=== PATIENT | female | born 1990 | race Caucasian/White ===

== ENCOUNTER 2019-05-14 13:21 | Emergency (ER) | payer SELFPAY ==
[2019-05-14 13:33] VITALS: BP 120/81; PULSE 88; RESP 16; TEMP 36.6; O2SAT 97; BMI 25.1
[2019-05-14 14:17] LABS: HCG Qualitative Urine. Negative (Negative)
[2019-05-14 14:32] LABS: Basophils # 0.1 10^3/uL (0.0-0.1); Basophils % 0.9 %; Eosinophils # 0.1 10^3/uL (0.0-0.8); Hematocrit 43.8 % (37.0-47.0); Hemoglobin 14.5 g/dL (11.5-15.3); Lymphocytes # 3.2 10^3/uL (0.8-4.8); Lymphocytes % 35.1 %; Mean Corpuscular HGB Conc 33.1 g/dL (30.0-36.0); Mean Corpuscular Hemoglobin 28.8 pg (28.0-34.0); Mean Corpuscular Volume 86.9 fL (81-99); Mean Platelet Volume 9.2 fL (7.4-10.4); Monocytes # 0.5 10^3/uL (0.2-0.9); Monocytes % 5.5 %; Neutrophils # 5.2 10^3/uL (1.8-7.7); Neutrophils % 57.3 %; Nucleated Red Blood Cells % 0 %; Platelet Count 381 10^3/cmm (130-400); Red Blood Count 5.04 10^6/uL (4.1-5.3); Red Cell Distribution Width 12.7 % (12.1-15.1); White Blood Count 9.1 10^3/uL (4.0-10.0)
[2019-05-14 14:32] LABS: Add Urine Microscopic? YES; Bilirubin Urine Neg (NEGATIVE); Blood Urine Neg (Negative); Glucose Urine UA Norm (Normal); Ketones Urine Negative (Negative); Leukocyte Esterase Urine Negative (Negative); Nitrate Urine Negative (Negative); Protein Urine Neg (Negative); Urine Appearance SL Hazy (CLEAR); Urine Color Yellow (Yellow); Urobilinogen Urine Norm (Negative); pH Urine 6.5 (5-7)
[2019-05-14 14:37] LABS: Bacteria Urine 1+; Squamous Epithelial Cell Urine 0-4 (0-5); WBC Urine 0-4 /hpf (0-5)
[2019-05-14 14:43] LABS: Alanine Aminotransferase 50 U/L (0-33); Alkaline Phosphatase 95 IU/L (35-105); Anion Gap 17.2 (5-19); Aspartate Amino Transferase 30 U/L (0-32); Blood Urea Nitrogen 9 mg/dL (6-20); Calcium 10.1 mg/dL (8.5-10.5); Carbon Dioxide 23 mmol/L (22-29); Chloride 102 mmol/L (98-107); Globulin 2.7 g/dL (1.3-4.6); Glomerular Filtration Rate 99.6 mL/min (90-130); Glucose 91 mg/dL (65-115); Lipase 20 U/L (13-60); Potassium 4.2 mmol/L (3.5-5.1); Sodium 138 mmol/L (136-145); Total Bilirubin 0.3 mg/dL (0.15-1.2); Total Protein 7.7 g/dL (6.6-8.7)
--- NOTE | 2019-05-14 15:44 | W.ED.ABDPA2 ---
HPI - Abdominal Pain General: Chief Complaint: Abdominal Pain Stated Complaint: abd pain Time Seen by Provider: 05/14/19 15:43 Source: patient Mode of arrival: ambulatory Limitations: no limitations History of Present Illness: HPI narrative: 28-year-old female comes in today with complaints of midepigastric pain. Patient reports history of esophageal reflux disorder. Patient also reports that last year she had a bout of hepatitis A. Patient does also have a history of gallstones. Patient appears mildly unwell. Patient appears in no acute distress. Associated Symptoms: Reports nausea Review of Systems General: Reports: 10 or more systems reviewed and unremarkable except in HPI and below GI: Reports: abdominal pain and nausea PFSH ED PFSH: Social History Smoking and tobacco status: current every day smoker Physical Exam Const: COMMON NORMALS: no apparent distress and oriented x3 GENERAL APPEARANCE: cooperative HENMT: COMMON NORMALS: normocephalic, external ears normal, EAC's normal, TM's normal bilaterally and external nose normal HEAD & SCALP: normal to inspection and normocephalic FACE & SINUS: normal facial exam NOSE: external nose normal GENERAL EAR: hearing not grossly impaired EXTERNAL EAR: Yes external ears normal EXTERNAL AUDITORY CANAL: EAC's normal TYMPANIC MEMBRANE: TM's normal bilaterally MOUTH: oral and palatal mucosa normal THROAT: posterior oropharynx normal Eye: COMMON NORMALS: PERRL and EOMs intact bilaterally PUPIL: Yes PERRL Neck/C-Spine: COMMON NORMALS: full ROM and no lymphadenopathy Lymph: LYMPHATIC: no lymphedema noted Chest: COMMONS NORMALS: inspection of chest normal and palpation of chest normal Resp: COMMON NORMALS: normal respiratory effort and clear to auscultation bilaterally AUSCULTATION: clear to auscultation bilaterally Cardio: COMMON NORMALS: regular rate and regular rhythm RATE: regular rate RHYTHM: regular rhythm GI: COMMON NORMALS: normal to inspection, nondistended, normoactive bowel sounds PALPATION: Yes tender (mild mid epigastric) : COMMON NORMALS: Yes no CVA tenderness BLADDER/KIDNEY EXAM: Yes no CVA tenderness Back/Pelvis: COMMON NORMALS: no CVA tenderness and thoracic and lumbar spine normal to inspection Extremity: COMMON NORMALS: normal to inspection GENERAL: No edema Neuro: COMMON NORMALS: oriented x3, moves all extremities and no focal motor deficits Psych: COMMON NORMALS: mental status grossly normal and cooperative Skin: COMMON NORMALS: no rashes or lesions noted GENERAL SKIN EXAM: no rashes or lesions noted Course Vital Signs: Vital signs: Vital Signs Temperature 97.8 F 05/14/19 13:33 Pulse Rate 88 05/14/19 13:33 Respiratory Rate 16 05/14/19 13:33 Blood Pressure 120/81 05/14/19 13:33 Pulse Oximetry 97 05/14/19 13:33 MDM - Abdominal Pain MDM Narrative: Medical decision making narrative: Patient comes in today with complaints of midepigastric pain. On exam patient appears well. Abdomen soft some mild tenderness is noted in the mid epigastric area. Bowel sounds are present throughout. No rebound tenderness is noted. No guarding is noted. Vital signs are normal. Differential diagnosis includes gastritis, esophageal reflux, peptic ulcer disease, cholecystitis, pancreatitis, cholelithiasis. Laboratory values noted no abnormalities. Urine was clear. Reviewed exam with patient with recommendations for treatment of gastritis with esophageal reflux. Patient reported understanding of care plan and need for follow-up for further evaluation. Patient also reports understanding for return to the ER as needed. Lab Data: Labs: Lab Results 05/14/19 05/14/19 05/14/19 Range/Units 13:30 13:30 14:16 WBC 9.1 (4.0-10.0) 10^3/ uL RBC 5.04 (4.1-5.3) 10^6/u L Hgb 14.5 (11.5-15.3) g/dL Hct 43.8 (37.0-47.0) % MCV 86.9 (81-99) fL MCH 28.8 (28.0-34.0) pg MCHC 33.1 (30.0-36.0) g/dL RDW 12.7 (12.1-15.1) % Plt Count 381 (130-400) 10^3/c mm MPV 9.2 (7.4-10.4) fL Neut % (Auto) 57.3 % Lymph % (Auto) 35.1 % [place] % (Auto) 5.5 % Eos % (Auto) 1.0 % Baso % (Auto) 0.9 % Neut # (Auto) 5.2 (1.8-7.7) 10^3/u L Lymph # (Auto) 3.2 (0.8-4.8) 10^3/u L [place] # (Auto) 0.5 (0.2-0.9) 10^3/u L Eos # (Auto) 0.1 (0.0-0.8) 10^3/u L Baso # (Auto) 0.1 (0.0-0.1) 10^3/u L Nucleated RBC % (a uto) 0 % Nucleated RBCs # 0.0 /100WBC Sodium (136-145) mmol/L Potassium (3.5-5.1) mmol/L Chloride (98-107) mmol/L Carbon Dioxide (22-29) mmol/L Anion Gap (5-19) BUN (6-20) mg/dL Creatinine (0.5-0.9) mg/dL GFR Calculation (90-130) mL/min Glucose (65-115) mg/dL Calcium (8.5-10.5) mg/dL Total Bilirubin (0.15-1.2) mg/dL AST (0-32) U/L ALT (0-33) U/L Alkaline Phosphata se (35-105) IU/L Total Protein (6.6-8.7) g/dL Albumin (3.5-5.2) g/dL Globulin (1.3-4.6) g/dL Lipase (13-60) U/L HCG, Qual Negative (Negative) Urine Color Yellow (Yellow) Urine Appearance Sl hazy (CLEAR) Urine pH 6.5 (5-7) Ur Specific Gravit y 1.010 (1.005-1.030) Urine Protein Neg (Negative) Urine Glucose (UA) Norm (Normal) Urine Ketones Negative (Negative) Urine Blood Neg (Negative) Urine Nitrate Negative (Negative) Urine Bilirubin Neg (NEGATIVE) Urine Urobilinogen Norm (Negative) mg/dL Ur Leukocyte Loyda ase Negative (Negative) Urine RBC None (0-2) /hpf Urine WBC 0-4 H (0-5) /hpf Ur Squamous Epith Cells 0-4 H (0-5) Urine Bacteria 1+ H (NONE) H. pylori IgG Anti body (Negative) 05/14/19 05/14/19 Range/Units 14:16 14:16 WBC (4.0-10.0) 10^3/ uL RBC (4.1-5.3) 10^6/u L Hgb (11.5-15.3) g/dL Hct (37.0-47.0) % MCV (81-99) fL MCH (28.0-34.0) pg MCHC (30.0-36.0) g/dL RDW (12.1-15.1) % Plt Count (130-400) 10^3/c mm MPV (7.4-10.4) fL Neut % (Auto) % Lymph % (Auto) % [place] % (Auto) % Eos % (Auto) % Baso % (Auto) % Neut # (Auto) (1.8-7.7) 10^3/u L Lymph # (Auto) (0.8-4.8) 10^3/u L [place] # (Auto) (0.2-0.9) 10^3/u L Eos # (Auto) (0.0-0.8) 10^3/u L Baso # (Auto) (0.0-0.1) 10^3/u L Nucleated RBC % (a uto) % Nucleated RBCs # /100WBC Sodium 138 (136-145) mmol/L Potassium 4.2 (3.5-5.1) mmol/L Chloride 102 (98-107) mmol/L Carbon Dioxide 23 (22-29) mmol/L Anion Gap 17.2 (5-19) BUN 9 (6-20) mg/dL Creatinine 0.7 (0.5-0.9) mg/dL GFR Calculation 99.6 (90-130) mL/min Glucose 91 (65-115) mg/dL Calcium 10.1 (8.5-10.5) mg/dL Total Bilirubin 0.3 (0.15-1.2) mg/dL AST 30 (0-32) U/L ALT 50 H (0-33) U/L Alkaline Phosphata se 95 (35-105) IU/L Total Protein 7.7 (6.6-8.7) g/dL Albumin 5.0 (3.5-5.2) g/dL Globulin 2.7 (1.3-4.6) g/dL Lipase 20 (13-60) U/L HCG, Qual (Negative) Urine Color (Yellow) Urine Appearance (CLEAR) Urine pH (5-7) Ur Specific Gravit y (1.005-1.030) Urine Protein (Negative) Urine Glucose (UA) (Normal) Urine Ketones (Negative) Urine Blood (Negative) Urine Nitrate (Negative) Urine Bilirubin (NEGATIVE) Urine Urobilinogen (Negative) mg/dL Ur Leukocyte Loyda ase (Negative) Urine RBC (0-2) /hpf Urine WBC (0-5) /hpf Ur Squamous Epith Cells (0-5) Urine Bacteria (NONE) H. pylori IgG Anti body Negative (Negative) Discharge Plan Discharge Clinical Impression: Gastritis Qualifiers: Gastritis type: unspecified gastritis Chronicity: chronic Gastritis bleeding: without bleeding Qualified Code(s): K29.50 - Unspecified chronic gastritis without bleeding Cholelithiases Qualifiers: Cholelithiasis location: gallbladder Cholecystitis presence: without cholecystitis Biliary obstruction: without biliary obstruction Qualified Code(s): K80.20 - Calculus of gallbladder without cholecystitis without obstruction Condition: Stable Prescriptions: New dicyclomine 20 mg tablet 20 mg PO QID PRN (Reason: abdominal pain) Qty: 20 RF: 0 pantoprazole 40 mg tablet,delayed release (DR/EC) 40 mg PO DAILY Qty: 30 RF: 0 No Action No Known Home Medications RF: 0 Discharge Orders: Discharge Order (Routine); Ordered 05/14/19 Ordered By: Darian Hutson Referrals: Edmond Cardenas MD [Family Provider] - Valerie Tineo FNP [Primary Care Provider] - Discharge Diet: Usual diet Discharge Activity: Increase activity as tolerated Patient Instructions: Gastroesophageal Reflux Disease (ED) Activity Restrictions/Additional Instructions: drink plenty of fluids Avoid spicy, greasy, and acidic foods until pain is improved Healthy diet and exercise Stop smoking Follow-up with primary care in one week Return to ER for high fever, or new concerns Stand Alone Forms: Work/School Release Coding Level of Care Code ED 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
[2019-05-14 16:09] LABS: H. Pylori IgG Antibody Negative (Negative)
[2019-05-14] MEDS: lidocaine 2% viscous 15 ML, aluminum-mag hydrox-simethicon 30 ML, sucralfate oral liq 1 GM PO (16:18)
== END 2019-05-14 16:55 | disposition home or self-care (01) ==
PROVIDERS: Family Medicine; Emergency Provider Nurse Practitioner Family; Family Provider Internal Medicine; PCP Nurse Practitioner
DX: K29.50 Unspecified chronic gastritis without bleeding (principal); K80.20 Calculus of gallbladder without cholecystitis without obstruction; F17.200 Nicotine dependence, unspecified, uncomplicated
CPT/HCPCS: 36415; 80053; 81001; 81025; 83690; 85025; 86677; 99282; 99283

== ENCOUNTER 2020-01-02 05:14 | Emergency (ER) | payer SELFPAY ==
[2020-01-02 05:16] VITALS: BP 119/63; PULSE 85; RESP 14; TEMP 36.9; O2SAT 98; BMI 23.3
--- NOTE | 2020-01-02 05:19 | CTR_ITS ---
PROCEDURE INFORMATION: Exam: CT Head Without Contrast Exam date and time: 01/02/2020 5:51 AM Age: 29 years old Clinical indication: Altered mental status/memory loss; Confusion or disorientation TECHNIQUE: Imaging protocol: Computed tomography of the head without contrast. Radiation optimization: All CT scans at this facility use at least one of these dose optimization techniques: automated exposure control; mA and/or kV adjustment per patient size (includes targeted exams where dose is matched to clinical indication); or iterative reconstruction. COMPARISON: No relevant prior studies available. RADIATION DOSE METRICS: Total DLP (mGy-cm): 845.42 FINDINGS: Brain: No acute intracranial hemorrhage or mass effect. No definite acute infarct by CT. MRI could be more sensitive/specific for detection, as clinically directed. Cerebral ventricles: Ventricle size is normal for age. Bones/joints: No definite acute skull fracture. Paranasal sinuses: Included paranasal sinuses are essentially clear. Mastoid air cells: No significant acute finding. CT/CT head wo con* [id number] IMPRESSION: 1. No acute intracranial hemorrhage or mass effect. 2. No definite acute infarct by CT, see above. 3. Other findings discussed above. Radiation Dose CTDIVOL = (mGy): DLP = 845.42 (mGy-cm)
--- NOTE | 2020-01-02 05:19 | XRR_ITS ---
PROCEDURE INFORMATION: Exam: XR Chest, 1 View Exam date and time: 01/02/2020 5:43 AM Age: 29 years old Clinical indication: Altered mental status TECHNIQUE: Imaging protocol: XR of the chest Views: 1 view. COMPARISON: CR Chest 1 [place] [id number] 09/01/2018 7:38 AM FINDINGS: Lungs: No lung consolidation or pulmonary edema. Pleural space: No pleural effusion or pneumothorax. Heart/Mediastinum: The cardiac silhouette is not enlarged. The mediastinal contours are normal. Bones/joints: No acute osseous abnormality. XR/XR chest 1V portable [id number] IMPRESSION: No acute abnormality.
--- NOTE | 2020-01-02 05:20 | ECG_ITS ---
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 Measurements Intervals [place] Rate: 104 P: 56 KS: 137 QRS: 60 QRSD: 84 T: 29 QT: 341 QTc: 449 Interpretive Statements SINUS TACHYCARDIA SEPTAL MYOCARDIAL INFARCTION , OF INDETERMINATE AGE [40+ ms Q WAVE IN V1/V2] No previous ECG available for comparison Electronically Signed On 01-03-2020 20:28:28 CDT by Kee Garcia M.D. [id number]
--- NOTE | 2020-01-02 05:34 | ED_ITS ---
HPI - Alcohol General: Chief Complaint: Alcohol Stated Complaint: ETOH Time Seen by Provider: 01/02/20 05:18 Source: patient and EMS Mode of arrival: EMS Limitations: altered mental status History of Present Illness: HPI narrative: Óscar is a 29-year-old female who comes in by EMS with report of intoxication. Apparently the patient's roommate came home and found her asleep in her bed with 2 empty bottles of alcohol near the bed. Does not believe the patient may have overdosed. The patient was much more altered than what was to be expected and because of this her roommate called for the paramedics. EMS does not report any suspicion of overdose they did bring the patient's medications with her and there is still quite a bit of medication left in the bottles. These were prescriptions for naproxen, gabapentin and Flexeril. The patient opens her eyes spontaneously and will follow commands but her speech is unintelligible. EMS reports stable vital signs in route. Review of Systems General: Reports: ROS unobtainable due to mental status PFSH ED PFSH: Social History Smoking and tobacco status: current every day smoker Physical Exam Const: COMMON NORMALS: no acute distress and alert GENERAL APPEARANCE: cooperative HENMT: COMMON NORMALS: normocephalic, atraumatic, external ears normal, EAC's normal and Normal external nose present HEAD & SCALP: normal to inspection, normocephalic and atraumatic FACE & SINUS: normal facial exam and face symmetric NOSE: Normal external nose present and Normal nares present EXTERNAL EAR: Yes external ears normal EXTERNAL AUDITORY CANAL: EAC's normal MOUTH: Normal oral and palatal mucosa present, lip normal and tongue normal Eye: COMMON NORMALS: Equal, round and reactive pupils present and conjunctivae normal GENERAL EYE: appearance normal, both eyes and all related structures ALIGNMENT: Yes alignment normal PERIORBITAL: periorbital findings normal EYELID: eyelids normal CONJUNCTIVA: Yes conjunctivae normal SCLERA: sclerae normal PUPIL: Yes Equal, round and reactive pupils present Neck/C-Spine: COMMON NORMALS: full ROM, no lymphadenopathy, supple, no meningeal signs and no JVD GENERAL: Yes normal visual inspection and Yes trachea midline Chest: COMMONS NORMALS: normal inspection of the chest and normal palpation of entire chest wall Resp: COMMON NORMALS: normal respiratory effort, No retractions, No use of accessory muscles and clear to auscultation bilaterally EFFORT & INSPECTION: Yes able to speak in complete sentences and Yes symmetric chest movement AUSCULTATION: clear to auscultation bilaterally, no crackles, no rales, no rhonchi and no wheezes Cardio: COMMON NORMALS: no JVD, regular rate, regular rhythm, S1 normal heart sound present and S2 normal heart sound present RATE: regular rate RHYTHM: regular rhythm HEART SOUNDS: S1 normal heart sound present, S2 normal heart sound present, no click, no gallops, no murmurs and no rubs GI: COMMON NORMALS: Soft to palpation and No hepatosplenomegaly present PALPATION: Yes Soft to palpation, No Tenderness to palpation present (GI), No Guarding due to palpation present (GI), No Rigid due to palpation, Yes No hepatosplenomegaly present, No Hernia present, No Palpable mass present and No Pulsatile mass present : COMMON NORMALS: Yes no CVA tenderness BLADDER/KIDNEY EXAM: Yes no CVA tenderness EXTERNAL FEMALE EXAM: No Hernia present Back/Pelvis: COMMON NORMALS: no CVA tenderness, thoracic and lumbar spine normal to inspection, no thoracic nor lumbar tenderness and thoraco-lumbar ROM normal Extremity: COMMON NORMALS: normal to inspection, full ROM, capillary refill normal, no joint enlargement, no clubbing, cyanosis or edema and no calf tenderness Neuro: MILVIA COMA SCALE: document GCS findings Kopperl coma scale eye opening: Spontaneous Kopperl coma scale verbal response: Sounds Kopperl coma scale motor response: Obey commands Kopperl coma scale total score: 12 COMMON NORMALS: CN's II-XII intact bilaterally, moves all extremities, no focal motor deficits and no sensory deficits noted SENSORIUM/ORIENTATION: Yes alert MENINGEAL SIGNS: Yes no meningeal signs Skin: COMMON NORMALS: no rashes or lesions noted, turgor normal, no jaundice, no petechiae and no mottling GENERAL SKIN EXAM: no rashes or lesions noted and turgor normal Course Vital Signs: Vital signs: Vital Signs Temperature 98.5 F 01/02/20 05:16 Pulse Rate 85 01/02/20 05:16 Respiratory Rate 14 01/02/20 05:16 Blood Pressure 119/63 01/02/20 05:16 Pulse Oximetry 98 01/02/20 05:16 MDM - Alcohol MDM Narrative: Medical decision making narrative: 05Ulises Ferrell is a 29-year-old female who comes in with altered mental status. She was found in her bed and apparently intoxicated. Odor of alcohol is on her breath. Differential for altered mental status is extensive to include alcohol intoxication, overdose, meningitis, encephalitis sepsis, metabolic abnormality, cardiac abnormality, renal failure among many others. I will order a CT of the head and a complete laboratory work-up to evaluate for this. Currently the patient is hemodynamically stable with a GCS of 12. She is maintaining her own airway. Case is being turned over to Dr. Ballard at change of shift. Lab Data: Labs: Lab Results 01/02/20 01/02/20 01/02/20 Range/Units 05:29 05:29 05:40 WBC 13.4 H (4.0-10.0) 10^3/ uL RBC 5.28 (4.1-5.3) 10^6/u L Hgb 15.6 H (11.5-15.3) g/dL Hct 46.3 (37.0-47.0) % MCV 87.7 (81-99) fL MCH 29.5 (28.0-34.0) pg MCHC 33.7 (30.0-36.0) g/dL RDW 12.8 (12.1-15.1) % Plt Count 417 H (130-400) 10^3/c mm MPV 9.1 (7.4-10.4) fL Neut % (Auto) 69.1 % Lymph % (Auto) 24.3 % [place] % (Auto) 4.5 % Eos % (Auto) 0.6 % Baso % (Auto) 1.0 % Neut # (Auto) 9.24 H (1.8-7.7) 10^3/u L Lymph # (Auto) 3.2 (0.8-4.8) 10^3/u L [place] # (Auto) 0.6 (0.2-0.9) 10^3/u L Eos # (Auto) 0.1 (0.0-0.8) 10^3/u L Baso # (Auto) 0.1 (0.0-0.1) 10^3/u L Nucleated RBC % (a uto) 0 % Nucleated RBCs # 0.0 /100WBC PT 12.60 (12.1-14.9) SECO NDS INR 0.91 (0.8-1.2) Specimen Type Arterial Sample Site Radial, right ABG pH 7.41 (7.35-7.45) ABG pCO2 34.7 L (35-45) mmHg ABG pO2 92.9 (80.0-100.0) mmH g ABG HCO3 22.2 (22-26) mmol/L ABG Base Excess -1.7 (-2.0-2.0) mmol/ L Vladislav Test Pos Hematocrit 46.6 (37-47) % Mortgage Processing Clerk ID [email or web address] EKG Data^: EKG 1: Attestation: I personally reviewed and interpreted this EKG as follows: EKG interpretation date: 01/02/20 EKG interpretation time: 05:28 Interpretation: Normal sinus rhythm at 104 beats a minute, normal axis, no blocks, normal intervals. No acute ST-T wave changes. Discharge Plan Discharge Prescriptions: No Action gabapentin 300 mg capsule 300 mg PO DAILY 30 Days Qty: 30 RF: 0 cyclobenzaprine 5 mg tablet 5 mg PO TID PRN (Reason: muscle spasm) 30 Days Qty: 30 RF: 0 naproxen 500 mg tablet 500 mg PO BID PRN (Reason: pain) 30 Days Qty: 30 RF: 0 Coding Level of Care Code ED Mild Disabilities Teacher for Chg Fwd Exam Comprehensive
[2020-01-02 05:38] LABS: Basophils # 0.1 10^3/uL (0.0-0.1); Eosinophils # 0.1 10^3/uL (0.0-0.8); Eosinophils % 0.6 %; Hematocrit 46.3 % (37.0-47.0); Hemoglobin 15.6 g/dL (11.5-15.3); Lymphocytes # 3.2 10^3/uL (0.8-4.8); Lymphocytes % 24.3 %; Mean Corpuscular HGB Conc 33.7 g/dL (30.0-36.0); Mean Corpuscular Hemoglobin 29.5 pg (28.0-34.0); Mean Corpuscular Volume 87.7 fL (81-99); Mean Platelet Volume 9.1 fL (7.4-10.4); Monocytes # 0.6 10^3/uL (0.2-0.9); Monocytes % 4.5 %; Neutrophils # 9.24 10^3/uL (1.8-7.7); Neutrophils % 69.1 %; Nucleated Red Blood Cells % 0 %; Platelet Count 417 10^3/cmm (130-400); Red Blood Count 5.28 10^6/uL (4.1-5.3); Red Cell Distribution Width 12.8 % (12.1-15.1); White Blood Count 13.4 10^3/uL (4.0-10.0)
[2020-01-02 05:45] LABS: ABG PCO2 34.7 mmHg (35-45); ABG PH Result 7.41 (7.35-7.45); Arterial Blood Gas Hematocrit 46.6 % (37-47); Base Excess ABG -1.7 mmol/L (-2.0-2.0); Blood Gas Allen Test Pos; Blood Gas Sample Site Radial, right; Blood Gas Sample Type Arterial; HCO3 ABG 22.2 mmol/L (22-26); PO2 ABG 92.9 mmHg (80.0-100.0)
[2020-01-02] MEDS: ondansetron 2 mg/ML SDV 2 mL 4 MG IVP (05:49)
[2020-01-02 05:50] LABS: INR 0.91 (0.8-1.2)
[2020-01-02] MEDS: lactated ringers 1,000 ML 999 ML IV ×2 (05:55→06:54)
[2020-01-02 05:57] LABS: HCG, Serum Qual Negative (Negative)
[2020-01-02 06:05] LABS: Troponin(5th) Baseline 6 ng/L (0-10)
[2020-01-02 06:15] LABS: Alanine Aminotransferase 32 U/L (0-33); Albumin Level 5.7 g/dL (3.5-5.2); Alcohol Level 137 mg/dL (0-10); Alkaline Phosphatase 90 IU/L (35-105); Anion Gap 19.3 (5-19); Aspartate Amino Transferase 22 U/L (0-32); Blood Urea Nitrogen 10 mg/dL (6-20); Carbon Dioxide 24 mmol/L (22-29); Chloride 104 mmol/L (98-107); Creatine Phosphokinase 176 U/L (26-192); Creatinine Clr Calc Pharmacy 130.1707; Globulin 2.4 g/dL (1.3-4.6); Glomerular Filtration Rate 118.2 mL/min (90-130); Glucose 102 mg/dL (65-115); Magnesium 2.4 mg/dL (1.7-2.3); Osmolality Calculated 295 mOsm/kg (285-295); Potassium 4.3 mmol/L (3.5-5.1); Sodium 143 mmol/L (136-145); Total Bilirubin 0.2 mg/dL (0.15-1.2); Total Protein 8.1 g/dL (6.6-8.7)
[2020-01-02 06:32] LABS: Acetaminophen < 5.0 ug/mL (10-30); Salicylate < 0.3 mg/dL (3-10)
[2020-01-02 06:39] VITALS: BP 100/63; PULSE 73; RESP 16; O2SAT 98
--- NOTE | 2020-01-02 06:47 | PC.NURSE ---
Patient wakes ups intermitently and says I don't feel good. Unable to get answers to questions.
[2020-01-02 06:58] VITALS: BP 124/77; PULSE 67; RESP 18; O2SAT 99
[2020-01-02 07:01] LABS: Bilirubin Urine Neg (Negative); Blood Urine Neg (Negative); Glucose Urine UA Norm (Normal); Ketones Urine Negative (Negative); Leukocyte Esterase Urine Negative (Negative); Nitrate Urine Negative (Negative); Protein Urine Neg (Negative); Specific Gravity, Urine 1.005 (1.005-1.030); Urine Appearance Clear (CLEAR); Urine Color Yellow (Yellow); Urobilinogen Urine Norm (Negative); pH Urine 7 (5-7)
[2020-01-02 07:02] LABS: Add Urine Culture? No; Bacteria Urine TRACE /hpf; RBC Urine RARE /hpf (0-2); Squamous Epithelial Cell Urine 0-4 /hpf (0-5); WBC Urine 0-4 /hpf (0-5)
[2020-01-02 07:06] LABS: Amphetamines Screen Urine Negative (Negative); Barbiturates Screen Urine Negative (Negative); Benzodiazepines Screen Urine Negative (Negative); Cocaine Screen Urine Negative (Negative); Opiate Screen Urine Negative (Negative); PCP Screen Urine Negative (Negative); THC Screen Urine Negative (Negative)
--- NOTE | 2020-01-02 07:20 | ECG_ITS ---
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 Measurements Intervals [place] Rate: 73 P: 49 [place]: 155 QRS: 51 QRSD: 92 T: 16 QT: 408 QTc: 451 Interpretive Statements SINUS RHYTHM WITH SINUS ARRHYTHMIA SEPTAL MYOCARDIAL INFARCTION , OF INDETERMINATE AGE [40+ ms Q WAVE IN V1/V2] Compared to ECG 01/02/2020 05:28:41 Sinus tachycardia no longer present Myocardial infarct finding still present Electronically Signed On 01-03-2020 20:52:42 CDT by Kee Garcia M.D. [id number]
[2020-01-02] MEDS: ketorolac 30 mg/mL INJ IVP (07:33)
[2020-01-02 08:05] LABS: Troponin 5 2HR 6.76 ng/L (0-10); Troponin 5 2HR Delta 0.76 ABS# (0-10)
[2020-01-02 09:27] VITALS: BP 118/72; PULSE 85; RESP 18; O2SAT 97
--- NOTE | 2020-01-02 09:41 | PC.NURSE ---
Nose began bleeding after nasal swab for the COVID
[2020-01-02 10:06] VITALS: BP 121/68; PULSE 74; RESP 18; TEMP 36.6; O2SAT 96
== END 2020-01-02 10:07 | disposition home or self-care (01) ==
PROVIDERS: Emergency Medicine; Emergency Provider Family Medicine; Family Provider Internal Medicine; PCP Nurse Practitioner
DX: F10.129 Alcohol abuse with intoxication, unspecified (principal); F43.10 Post-traumatic stress disorder, unspecified; F17.210 Nicotine dependence, cigarettes, uncomplicated
CPT/HCPCS: 12345; 36600; 70450; 71045; 80053; 80306; 80307; 81001; 82550; 82803; 83735; 84484; 84703; 85025; 85610; 93005; 96365; 96366; 96375; 99283; 99284; J1885; J2405

== ENCOUNTER 2020-01-24 10:27 | Outpatient (CLI) | payer SELFPAY ==
--- NOTE | 2020-01-24 10:36 | XR_ITS ---
WS: [id number] XR lumbar spine 2-3V* [id number] REASON FOR EXAM: BACK PAIN FINDINGS: 5 lumbar vertebral bodies with no significant compression deformity. Normal lumbar spine alignment. Intervertebral disc spaces are well preserved. No significant facet joint changes. XR/XR lumbar spine 2-3V* [id number] IMPRESSION: No significant abnormality identified.
== END 2020-01-24 10:28 | disposition home or self-care (01) ==
PROVIDERS: PCP Family Medicine Adult Medicine; Visit Provider Dermatology
DX: M54.9 Dorsalgia, unspecified (principal)
CPT/HCPCS: 72100

== ENCOUNTER → 2020-05-13 15:30 | Outpatient (BNVA) | payer OTHER, SELFPAY | PROVIDERS: PCP Family Medicine Adult Medicine; Visit Provider Nurse Practitioner Family | DX: Z11.52 Encounter for screening for COVID-19 (principal) | CPT/HCPCS: 87635 ==

== ENCOUNTER 2020-08-26 14:23 | Emergency (ER) | payer SELFPAY ==
[2020-08-26 14:33] VITALS: PULSE 88; RESP 16; TEMP 36.4; O2SAT 97; BMI 23.8
--- NOTE | 2020-08-26 14:57 | XRR_ITS ---
PROCEDURE INFORMATION: Exam: XR Left Knee Exam date and time: 08/26/2020 3:12 PM Age: 30 years old Clinical indication: Pain and injury or trauma; Other: Caught knee in intake valve of pool; Swelling (edema); Left; Injury date: 08/21/20; Additional info: Injury/pain TECHNIQUE: Imaging protocol: XR Left knee. Views: 3 views. COMPARISON: No relevant prior studies available. FINDINGS: Bones/joints: Normal. Soft tissues: Normal. XR/XR knee LT 3V* [id number] IMPRESSION: No acute findings.
--- NOTE | 2020-08-26 15:51 | W.ED.LOWEXIN ---
HPI - Extremity Injury (Lower) General: Chief Complaint: Extremity Injury, Lower Stated Complaint: LLE Injury Time Seen by Provider: 08/26/20 15:29 Source: patient Mode of arrival: ambulatory Limitations: no limitations History of Present Illness: HPI Narrative: Patient is a 30-year-old female who presents to ED today for evaluation of left knee pain. Patient tells me she initially injured the knee approximately 5 days ago after catching the left knee and an intake valve while at the pool. She was seen in urgent care 3 days ago and was told she could have a meniscal tear. They recommended compression, weight bearing as tolerated with crutches, ice and elevation. Patient has been doing these but is concerned because she continues to have pain. XRs not obtained at . Pain is localized to her medial joint line. No other complaints at this time. MD complaint: knee injury Onset (ago): day(s) Place: other ([place]) Severity: moderate Relieving factors: immobilization Exacerbating factors: weight bearing, movement and palpation Associated symptoms: Reports no associated symptoms Other symptoms: none Review of Systems Const: Denies: fever(s) Card: Denies: chest pain Resp: Denies: dyspnea Musc: Reports: joint pain (L knee); Denies: neck pain, back pain, extremity pain, extremity swelling, joint redness, joint warmth or limited range of motion Neuro: Denies: numbness in extremities, weakness in extremities or sensory changes PFSH ED PFSH: Medical History Anxiety and depression Borderline personality disorder Gallbladder disease Gallstones IBS (irritable bowel syndrome) Migraine PTSD (post-traumatic stress disorder) Scoliosis Smoker Surgical History History of back surgery History of oral surgery Social History Smoking and tobacco status: current every day smoker cigarettes Packs smoked per day: 1 Second hand smoke exposure: Yes Alcohol intake: current Alcohol intake frequency: holidays/special occasions only Current occupational status: unemployed Current gender identity: Female Female Reproductive History: Date of last menstrual period: 08/24/20 Physical Exam Const: COMMON NORMALS: no acute distress, average body habitus, patient oriented x3, no limitations, healthy appearing, alert and well nourished Extremity: COMMON NORMALS: full ROM, capillary refill normal, no joint enlargement, no clubbing, cyanosis or edema, no calf tenderness and no pedal edema GENERAL: Yes normal exam except as noted LEFT LOWER EXTREMITY: Yes knee joint (TTP lateral joint line; tenderness with valgus stress) Left knee: Yes ROM (normal) and Yes neurovascular exam (normal) Neuro: COMMON NORMALS: patient oriented x3, moves all extremities, no focal motor deficits and no sensory deficits noted SENSORIUM/ORIENTATION: Yes alert Skin: COMMON NORMALS: no rashes or lesions noted GENERAL SKIN EXAM: no rashes or lesions noted TRAUMA: no lacerations or abrasions Course Vital Signs: Vital signs: Vital Signs Temperature 97.6 F 08/26/20 14:33 Pulse Rate 76 08/26/20 15:54 Respiratory Rate 16 08/26/20 15:54 Blood Pressure 107/71 08/26/20 15:54 Pulse Oximetry 97 08/26/20 15:54 MDM - Extremity Injury (Lower) MDM Narrative: Medical decision making narrative: Recommend continuing conservative therapy. She has appointment with her PCP Dr. Rubio in two days for further evaluation. Imaging Data^: XR L knee: Radiologist's impression: [address] [address] XRay Report Signed Patient: Allyson Cantrell Unit #: [id number] : 1990 Age/Sex: 30 / F ADM Date: 08/26/20 Loc: ER Room/Bed: Attending Dr: Ordering Provider/Ordering MD: Pam Choi Date of Service: 08/26/20 Procedure(s): XR knee LT 3V* [id number] Accession Number(s): [id number] Report Number: [id number] PROCEDURE INFORMATION: Exam: XR Left Knee Exam date and time: 08/26/2020 3:12 PM Age: 30 years old Clinical indication: Pain and injury or trauma; Other: Caught knee in intake valve of pool; Swelling (edema); Left; Injury date: 08/21/20; Additional info: Injury/pain TECHNIQUE: Imaging protocol: XR Left knee. Views: 3 views. COMPARISON: No relevant prior studies available. FINDINGS: Bones/joints: Normal. Soft tissues: Normal. XR/XR knee LT 3V* 27307 IMPRESSION: No acute findings. Dictated By: Abhinav Nevarez Signed By: Abhinav Nevarez Signed Date/Time: 08/26/20 155 DD/ 52 Discharge Plan Discharge Patient Disposition: Home Clinical Impression: Injury of left knee Qualifiers: Encounter type: initial encounter Qualified Code(s): S89.92XA - Unspecified injury of left lower leg, initial encounter Condition: Stable Prescriptions: New diclofenac sodium 50 mg tablet,delayed release (DR/EC) 50 mg PO Q12H PRN (Reason: pain) Qty: 20 RF: 0 Discontinued ibuprofen 200 mg capsule 200 mg PO Q6H PRNRF: 0 No Action promethazine 25 mg tablet 25 mg PO Q6H PRN (Reason: nausea and vomiting) Qty: 20 RF: 1 diphenhydramine HCl [Allergy (diphenhydramine)] 25 mg capsule 25 mg PO .hs PRNRF: 0 bupropion HCl 150 mg tablet extended release 24 hr 150 mg PO QAM Qty: 30 RF: 1 buspirone 5 mg tablet 5 mg PO TID 30 Days Qty: 90 RF: 3 Discharge Orders: Discharge ED (Routine); Ordered 08/26/20 Ordered By: Pam Choi Referrals: Julien Rubio MD [Primary Care Provider] - Patient Instructions: Knee Sprain (ED), RICE Therapy (ED) Coding Level of Care Code ED Feed Project Engineer for Lawrence Harrison
[2020-08-26 15:54] VITALS: BP 107/71; PULSE 76; RESP 16; O2SAT 97
== END 2020-08-26 16:02 | disposition home or self-care (01) ==
PROVIDERS: Emergency Provider Physician Assistant; PCP Family Medicine Adult Medicine
DX: S89.92XA Unspecified injury of left lower leg, initial encounter (principal); F17.210 Nicotine dependence, cigarettes, uncomplicated; W22.8XXA Striking against or struck by other objects, initial encounter
CPT/HCPCS: 73562; 99282

== ENCOUNTER → 2022-05-12 17:33 | Outpatient (BNVA) | payer OTHER, SELFPAY | PROVIDERS: PCP Family Medicine Adult Medicine; Visit Provider Psychiatry & Neurology Neurology | DX: F43.10 Post-traumatic stress disorder, unspecified (principal) | CPT/HCPCS: 80061; 83036 ==

== ENCOUNTER → 2022-05-29 15:39 | Outpatient (BNVA) | payer MEDICAID, SELFPAY ==
[2022-05-25 16:51] VITALS: BP 122/85; BMI 26.0
== END ==
PROVIDERS: PCP Family Medicine Adult Medicine; Visit Provider Emergency Medicine
DX: S39.012A Strain of muscle, fascia and tendon of lower back, initial encounter (principal); R30.0 Dysuria; M54.9 Dorsalgia, unspecified; M46.1 Sacroiliitis, not elsewhere classified; X58.XXXA Exposure to other specified factors, initial encounter
CPT/HCPCS: 81000

== ENCOUNTER → 2022-05-31 12:35 | Outpatient (BNVA) | payer MEDICAID, SELFPAY ==
[2022-05-25 16:51] VITALS: BP 122/85; BMI 26.0
== END ==
PROVIDERS: PCP Family Medicine Adult Medicine; Visit Provider Emergency Medicine
DX: M54.9 Dorsalgia, unspecified (principal)
CPT/HCPCS: 72100

== ENCOUNTER → 2023-03-21 17:16 | Outpatient (BNVA) | payer MEDICAID, SELFPAY ==
[2022-05-25 16:51] VITALS: BP 122/85; BMI 26.0
== END ==
PROVIDERS: PCP Nurse Practitioner; Visit Provider Emergency Medicine
DX: N39.0 Urinary tract infection, site not specified (principal)
CPT/HCPCS: 81000; 87077; 87086

== ENCOUNTER 2023-05-03 06:10 | Outpatient (CLI) | payer MEDICAID, SELFPAY ==
[2022-05-25 16:51] VITALS: BP 122/85; BMI 26.0
--- NOTE | 2023-05-03 06:15 | US_ITS ---
WS: [id number] Complete ABDOMINAL ULTRASOUND HISTORY: K80.20 - Calculus of gallbladder without cholecystitis wi... COMPARISON: 08/29/2018 Liver: 18.7 cm in length. Mild hepatomegaly with normal echogenicity. No bile duct dilatation or mass . Portal Vein: Normal hepatopetal flow with monophasic waveform. Gallbladder: Normally distended with cholelithiasis. No wall thickening. CBD: 0.4 cm Pancreas: Normal size and echogenicity. Right kidney: 9.9 cm x 4.7 x 5.3 cm. Cortex:1.1 cm. Normal size and echogenicity. No hydronephrosis or mass. Left kidney: 9.9 cm x 5.5 cm x 4.6 cm. Cortex: 1.2 cm. Normal size and echogenicity. No hydronephrosis or mass. Spleen: Normal. 11.1 cm in length. Aorta and IVC: Unremarkable abdominal aorta and IVC. Impression: 1. Cholelithiasis without evidence for acute cholecystitis. 2. Mild hepatomegaly. 3. No renal obstruction.
== END 2023-05-03 06:11 | disposition home or self-care (01) ==
PROVIDERS: PCP Nurse Practitioner; Visit Provider Nurse Practitioner
DX: K80.20 Calculus of gallbladder without cholecystitis without obstruction (principal); R16.0 Hepatomegaly, not elsewhere classified
CPT/HCPCS: 76700

== ENCOUNTER → 2023-05-05 15:24 | Outpatient (BNVA) | payer MEDICAID, SELFPAY ==
[2022-05-25 16:51] VITALS: BP 122/85; BMI 26.0
== END ==
PROVIDERS: PCP Nurse Practitioner; Visit Provider Nurse Practitioner
DX: J02.9 Acute pharyngitis, unspecified (principal)
CPT/HCPCS: 87400; 87880

== ENCOUNTER → 2023-07-21 10:15 | Outpatient (BNVA) | payer MEDICAID, SELFPAY ==
[2022-05-25 16:51] VITALS: BP 122/85; BMI 26.0
== END ==
PROVIDERS: PCP Nurse Practitioner; Visit Provider Nurse Practitioner
DX: M54.2 Cervicalgia (principal); M54.50 Low back pain, unspecified; M62.838 Other muscle spasm; M54.30 Sciatica, unspecified side; K59.00 Constipation, unspecified
CPT/HCPCS: 72040; 72100

== ENCOUNTER 2023-10-21 08:46 | Outpatient (CLI) | payer MEDICAID, SELFPAY ==
[2022-05-25 16:51] VITALS: BP 122/85; BMI 26.0
--- NOTE | 2023-10-21 08:51 | CT_ITS ---
WS: [id number] CT SINUSES TECHNIQUE: Noncontrast CT of the paranasal sinuses with coronal and sagittal reformatted images. CLINICAL INFORMATION: OTHER SPECIFIED DISORDERS OF NOSE NASAL SINUSES COMPARISON: None. DLP: 373.[address] scans at [facility] use at least one of these dose optimization techniques: automated e xposure control; mA and/or kV adjustment per patient size (includes targeted exams where dose is matc hed to clinical indication); or iterative reconstruction. FINDINGS: Evidence of prior dental extraction involving the LEFT maxillary first molar. Small area of bony deh iscence at the roof of the extraction cavity communicates with the LEFT maxillary sinus best visualiz ed on the sagittal reconstruction images series 15 image 29. This is also noted in the bookmark image s. Associated mild mucosal thickening within the LEFT maxillary sinus. 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 Recommend ENT consultation. Mild S shaped nasal septal deviation measuring 3 to 4 mm. Tiny LEFT vee bullosa. Mucosal thickenin g along the ostiomeatal units bilaterally with mild narrowing. Mild mucosal thickening in the ethmoid air cells. Frontal sinuses are well aerated. Sphenoid sinuses are well aerated. Mild mucosal thicken ing along the sphenoid sinus ostia with mild narrowing. Sphenoid sinuses are well aerated. Frontal sinuses are well aerated. Lamina papyracea is intact. Mild mucosal thickening in the ethmoid air cells.. Mastoid air cells are well aerated. Middle ears appear well aerated bilaterally. RIGHT maxillary sinus well aerated. Normal posterior nasopharynx. Normal parapharyngeal fat. CT/CT sinus wo con* [id number] IMPRESSION: 1. 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 Bony defect measures approximately 9 mm. Recommend ENT consultation . 2. Mild mucosal thickening overlying the area of bony dehiscence in the LEFT m axillary sinus 3. Mild nasal septal deviation described above. 4. Tiny LEFT vee bullosa. 5. Mild narrowing of the ostiomeatal units bilaterally. 6. Mastoid air cells are well aerated.
== END 2023-10-21 08:47 | disposition home or self-care (01) ==
LOC: RAD 08:48
PROVIDERS: PCP Nurse Practitioner; Visit Provider Nurse Practitioner
DX: J34.89 Other specified disorders of nose and nasal sinuses (principal); J32.0 Chronic maxillary sinusitis
CPT/HCPCS: 70486

== ENCOUNTER 2024-02-23 12:50 | Emergency (ER) | payer MEDICAID, SELFPAY ==
[2022-05-25 16:51] VITALS: BP 122/85; BMI 26.0
[2024-02-23 13:11] VITALS: BP 135/82; PULSE 90; TEMP 36.9; O2SAT 100; BMI 28.8
[2024-02-23 14:11] LABS: Basophils # 0.1 10^3/uL (0.0-0.1); Basophils % 0.9 %; Eosinophils # 0.2 10^3/uL (0.0-0.8); Eosinophils % 1.4 %; Hematocrit 45.4 % (36-47); Lymphocytes # 2.9 10^3/uL (0.8-4.8); Lymphocytes % 17.7 %; Mean Corpuscular HGB Conc 33.5 g/dL (30-55); Mean Corpuscular Hemoglobin 29.2 pg (27-33); Mean Corpuscular Volume 87.1 fl (85-98); Mean Platelet Volume 9.1 fL (7.4-10.4); Monocytes # 0.7 10^3/uL (0.2-0.9); Monocytes % 4.5 %; Neutrophils # 12.17 10^3/uL (1.8-7.7); Neutrophils % 75.1 %; Nucleated Red Blood Cells % 0 %; Platelet Count 471 10^3/cmm (157-399); Red Blood Count 5.21 10^6/uL (3.85-5.65); Red Cell Distribution Width 12.4 % (12.1-15.1)
[2024-02-23 14:27] LABS: Lactic Sepsis W/Reflex 1.1 mmol/L (0.5-2.2)
[2024-02-23 14:28] LABS: Alanine Aminotransferase 18 U/L (0-33); Albumin Level 4.8 g/dL (3.5-5.2); Alkaline Phosphatase 83 U/L (35-105); Anion Gap 17.8 (5-19); Aspartate Amino Transferase 16 U/L (0-32); Blood Urea Nitrogen 8 mg/dL (6-20); Calcium 9.3 mg/dL (8.5-10.5); Carbon Dioxide 20 mmol/L (22-29); Chloride 105 mmol/L (98-107); Creatinine Clr Calc Pharmacy 138.0848; Globulin 2.9 g/dL (1.3-4.6); Glomerular Filtration Rate 115.1 mL/min (90-130); Glucose 90 mg/dL (65-115); Osmolality Calculated 286 mOsm/kg (285-295); Potassium 3.8 mmol/L (3.5-5.1); Sodium 139 mmol/L (136-145); Total Bilirubin 0.4 mg/dL (0.15-1.2); Total Protein 7.7 g/dL (6.6-8.7)
--- NOTE | 2024-02-23 15:20 | ED_ITS ---
HPI - Dental/Oral 2 General: Chief complaint: Dental/Oral Stated complaint: sent from clinic abcess Time Seen by Provider: 02/23/24 14:16 Source: patient Mode of arrival: ambulatory Limitations: no limitations History of Present Illness: Patient is a 33-year-old biologically female but identifies as male individual here after he was seen at the walk-in clinic and referred to the emergency department. He is complaining of pain to his right upper third molar since around 6 AM this morning. He states the molar is cracked/significantly decayed. He reports having pain in the right side of his neck. He has not noticed any edema. He is eating, drinking, swallowing, controlling secretions normally. No muffled voice. No fevers. Is not having any trouble moving his neck. According to the clinic provider notes, she was concerned about a possible Wilmer's angina. MD Complaint: tooth pain Teeth map: 1. Duration: constant Severity: severe Relieving factors: nothing Exacerbating factors: chewing (on affected side) Context: history of dental caries, trauma (mechanism) and poor dental care Associated symptoms: Reports ear or mastoid pain, sore throat and other (R neck pain); Denies fever(s) Treatment prior to arrival: oral analgesic Related Data Previous Rx's Medication Instructions Recorded ibuprofen 800 mg tablet 800 mg PO Q8H PRN pain #90 tabs 11/02/23 clindamycin HCl 300 mg capsule 300 mg PO Q6H 7 days #28 caps 02/23/24 hydrocodone 5 mg-acetaminophen 325 1 tab PO Q6H PRN pain #10 tabs 02/23/24 mg tablet Allergies Allergy/AdvReac Type Severity Reaction Status Date / Time tramadol Allergy SOB Verified 02/23/24 13:17 Review of Systems 2 Const: Denies: fever(s), chills, body aches, fatigue or malaise ENMT: Reports: throat pain, dental pain and ear or mastoid pain; Denies: hoarseness, swelling of lips/tongue, oral sores, nasal discharge, nasal congestion or sinus pain Card: Denies: chest pain GI: Denies: abdominal pain, nausea or vomiting Musc: Reports: neck pain; Denies: back pain, extremity pain, extremity swelling or joint swelling Skin/Breast: Denies: rash Neuro: Denies: headache(s), numbness in extremities, weakness in extremities or sensory changes PFSH ED 2 PFSH: Medical History ADHD Psychiatric care Injury of left knee Anxiety and depression Borderline personality disorder Gallbladder disease Migraine Gallstones Smoker IBS (irritable bowel syndrome) Scoliosis PTSD (post-traumatic stress disorder) Surgical History History of oral surgery History of back surgery Family History Family/Other Cancer maternal cousin Mother CAD (coronary artery disease) cardiac stent placement Other Clotting disorder Psychiatric illness Denies family history of Diabetes Hyperlipidemia Chronic kidney disease (CKD) Lung disease Hypertension Social History Smoking and tobacco/nicotine status: never used tobacco/nicotine Quit status (tobacco/nicotine): considering quitting Second hand smoke exposure: Yes Alcohol intake: current Alcohol intake frequency: holidays/special occasions only Alcohol type: beer and hard liquor Substance/Drug Use: current Substance/Drug use frequency: daily Other substance/drug use details: 2 bowls a day, does have a medical card Adopted: No Caregiver/support person: No Lives independently: Yes Household members: none Housing: House Marital status: Legally Marital status details: since December 18 Number of children: 0 Highest education level completed: Some College, No Degree service: No Current occupational status: employed 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 [employer] Current occupational exposures/hazards: No Pets and animals: Yes (Randi Mckeon) Pets & animals: dog(s) Leisure activites: art, games and reading Do you think of yourself as: Lesbian/Garcia/Homosexual Current gender identity: Trans Sttwjj-an-Eyed Danita/Alevism: None Special danita needs: No Agree to transfusion: Yes Physical Exam 2 Const: COMMON NORMALS: no acute distress, average body habitus, patient oriented x3, no limitations, healthy appearing, alert and well nourished G ENERAL APPEARANCE: cooperative ORIENTATION/CONSCIOUSNESS: Yes awake, Yes oriented to person, Yes oriented to place and Yes oriented to time HENMT: COMMON NORMALS: normocephalic, atraumatic, external ears normal and TM's normal bilaterally HEAD & SCALP: normal to inspection, normocephalic and atraumatic FACE & SINUS: normal facial exam, sinuses nontender and face symmetric; no erythema and no edema EXTERNAL EAR: Yes external ears normal, Yes mastoids normal and Yes no periauricular adenopathy TYMPANIC MEMBRANE: TM's normal bilaterally MOUTH: Normal oral and palatal mucosa present, lip normal, tongue normal, Normal salivary glands and ducts present and other (floor of mouth is soft and non-elevated) TEETH & GINGIVA: Yes caries TEETH & GINGIVA IMAGES: 1. significantly decayed R 3rd molar without abscess THROAT: tonsils normal and posterior oropharynx abnormal erythema Eye: GENERAL EYE: appearance normal, both eyes and all related structures Neck/C-Spine: COMMON NORMALS: full ROM, no lymphadenopathy and no meningeal signs GENERAL: Yes normal visual inspection, No tracheal deviation and No submandibular swelling CERVICAL SPINE: Yes cervical ROM normal OTHER: pt has absolutely no submandibular or sublingual swelling present Resp: COMMON NORMALS: normal respiratory effort and clear to auscultation bilaterally AUSCULTATION: clear to auscultation bilaterally Cardio: COMMON NORMALS: regular rate and regular rhythm RATE: regular rate RHYTHM: regular rhythm Neuro: COMMON NORMALS: patient oriented x3 SENSORIUM/ORIENTATION: Yes alert, Yes oriented to person, Yes oriented to place and Yes oriented to time MENINGEAL SIGNS: Yes no meningeal signs Course 2 Vital Signs: Vital signs: Vital Signs Temperature 98.4 F 02/23/24 13:11 Pulse Rate 86 02/23/24 15:21 Respiratory Rate 16 02/23/24 15:49 Blood Pressure 137/72 02/23/24 15:21 Pulse Oximetry 96 02/23/24 15:49 Oxygen Delivery Me thod Room Air 02/23/24 15:21 MDM - Dental/Oral Medical Decision Making The majority of Wilmer's angina cases are caused from mandibular molar teeth, not maxillary. Other sources of spread can be peritonsillar abscesses or salivary gland infections. Clinical signs of Wilmer's include stiff neck, muffled voice, trismus, stridor, woody induration to submandibular space (i.e bull neck ), sublingual swelling, fevers, tripoding, etc. Patient has ZERO of these today. He has a significantly decayed R upper 3rd molar without abscess. There is no facial/neck swelling. Posterior oropharynx slightly erythematous thus strep obtained and negative. He was given IM pain medications here and feels vastly improved. Will place on abx/pain medications. Recommend prompt dental follow-up. Return to ED precautions given. Medical Records I reviewed the patient's medical records. Lab Data I reviewed the patient's lab results. 02/23/24 13:58 02/23/24 13:58 Laboratory Results WBC 16.20 10^3/uL (3.29-11.43) H 02/23/24 13:58 RBC 5.21 10^6/uL (3.85-5.65) 02/23/24 13:58 Hgb 15.20 g/dL (11.27-16.99) 02/23/24 13:58 Hct 45.4 % (36-47) 02/23/24 13:58 MCV 87.1 fl (85-98) 02/23/24 13:58 MCH 29.2 pg (27-33) 02/23/24 13:58 MCHC 33.5 g/dL (30-55) 02/23/24 13:58 RDW 12.4 % (12.1-15.1) 02/23/24 13:58 Plt Count 471 10^3/cmm (157-399) H 02/23/24 13:58 MPV 9.1 fL (7.4-10.4) 02/23/24 13:58 Neut % (Auto) 75.1 % 02/23/24 13:58 Lymph % (Auto) 17.7 % 02/23/24 13:58 Gordon % (Auto) 4.5 % 02/23/24 13:58 Eos % (Auto) 1.4 % 02/23/24 13:58 Baso % (Auto) 0.9 % 02/23/24 13:58 Neut # (Auto) 12.17 10^3/uL (1.8-7.7) H 02/23/24 13:58 Lymph # (Auto) 2.9 10^3/uL (0.8-4.8) 02/23/24 13:58 Gordon # (Auto) 0.7 10^3/uL (0.2-0.9) 02/23/24 13:58 Eos # (Auto) 0.2 10^3/uL (0.0-0.8) 02/23/24 13:58 Baso # (Auto) 0.1 10^3/uL (0.0-0.1) 02/23/24 13:58 Nucleated RBC % (auto) 0 % 02/23/24 13:58 Nucleated RBCs # 0.0 /100WBC 02/23/24 13:58 Sodium 139 mmol/L (136-145) 02/23/24 13:58 Potassium 3.8 mmol/L (3.5-5.1) 02/23/24 13:58 Chloride 105 mmol/L (98-107) 02/23/24 13:58 Carbon Dioxide 20 mmol/L (22-29) L 02/23/24 13:58 Anion Gap 17.8 (5-19) 02/23/24 13:58 BUN 8 mg/dL (6-20) 02/23/24 13:58 Creatinine 0.6 mg/dL (0.5-0.9) 02/23/24 13:58 GFR Calculation 115.1 mL/min (90-130) 02/23/24 13:58 Glucose 90 mg/dL (65-115) 02/23/24 13:58 Calculated Osmolality 286 mOsm/kg (285-295) 02/23/24 13:58 Lactic Acid 1.1 mmol/L (0.5-2.2) 02/23/24 13:58 Calcium 9.3 mg/dL (8.5-10.5) 02/23/24 13:58 Total Bilirubin 0.4 mg/dL (0.15-1.2) 02/23/24 13:58 AST 16 U/L (0-32) 02/23/24 13:58 ALT 18 U/L (0-33) 02/23/24 13:58 Alkaline Phosphatase 83 U/L (35-105) 02/23/24 13:58 Total Protein 7.7 g/dL (6.6-8.7) 02/23/24 13:58 Albumin 4.8 g/dL (3.5-5.2) 02/23/24 13:58 Globulin 2.9 g/dL (1.3-4.6) 02/23/24 13:58 Group A Strep Rapid Negative (Negative) 02/23/24 15:50 No radiology studies performed this visit Discharge Plan Discharge Patient Disposition: Home Clinical Impression: Toothache Condition: Stable Prescriptions: New clindamycin HCl 300 mg capsule 300 mg PO Q6H 7 Days Qty: 28 0RF hydrocodone-acetaminophen 5-325 mg tablet 1 tab PO Q6H PRN (Reason: pain) Qty: 10 0RF No Action ibuprofen 800 mg tablet 800 mg PO Q8H PRN (Reason: pain) Qty: 90 0RF Discharge Orders: Discharge ED (Routine); Ordered 02/23/24 Ordered By: Pam Choi Referrals: Radha Taylor FNP [Primary Care Provider] - Patient Instructions: Opioid Safety, Pain Management, Toothache Activity Restrictions/Additional Instructions: As we discussed, I would like you to see a dentist to soon as possible for your tooth. You need to return to the emergency department for worsening pain, any swelling to your face or neck, difficulty swallowing, controlling secretions, breathing, fevers, severe headache or visual changes, or any other concerns you may have. I hope you begin to feel better soon. Coding Level of Care Code ED Nurse Advisor for Lawrence Harrison
[2024-02-23 15:21] VITALS: BP 137/72; PULSE 86; RESP 16; O2SAT 99
[2024-02-23 15:49] VITALS: RESP 16; O2SAT 96
[2024-02-23] MEDS: morphine 4 mg/mL SDV 1 mL IM (15:49)
[2024-02-23] MEDS: ketorolac 60 mg/2 mL INJ IM (15:50)
[2024-02-23 16:25] LABS: Rapid Strep A Test Negative (Negative)
[2024-02-23 16:36] VITALS: BP 153/92; PULSE 67; RESP 16; O2SAT 97
[2024-02-23 17:06] VITALS: BP 165/92; PULSE 67; RESP 16; O2SAT 99
== END 2024-02-23 17:08 | disposition home or self-care (01) ==
PROVIDERS: Family Medicine; Emergency Provider Physician Assistant; PCP Nurse Practitioner
DX: K08.89 Other specified disorders of teeth and supporting structures (principal)
CPT/HCPCS: 36415; 80053; 83605; 85025; 87040; 87081; 87880; 96372; 99284; J1885; J2270

== ENCOUNTER → 2024-04-23 15:21 | Outpatient (BNVA) | payer MEDICAID, SELFPAY ==
[2022-05-25 16:51] VITALS: BP 122/85; BMI 26.0
== END ==
PROVIDERS: PCP Nurse Practitioner; Visit Provider Nurse Practitioner
DX: R50.9 Fever, unspecified (principal)
CPT/HCPCS: 87400; 87426